=== PATIENT | female | born 1925 | race Caucasian/White ===

== ENCOUNTER → 2016-08-15 | Outpatient (CLI) | payer OTHER ==
[~2016-08-15] MED LIST: ACET325T96 PO; ASPEC81 PO; BISA10SU7 RE; CLC100 PO; FRRS300 PO; GLC/500 PO; GLIP-171 PO; METO50TA17 PO; MOML PO; MULTCAP36 PO; PARO10TA PO; RXC5 PO; SIMV10TA5 PO; ZNT/150 PO
[2016-08-15 10:13] LABS: ESTIMATED AVERAGE GLUCOSE 163 mg/dl; HA1C FLAG Normal (Normal)
== END ==
LOC: C.LABCC 07:47
PROVIDERS: ATTEND Internal Medicine
DX: E11.9 Type 2 diabetes mellitus without complications (principal)

== ENCOUNTER → 2016-12-18 | Outpatient (CLI) | payer OTHER ==
[2016-12-18 11:34] LABS: ESTIMATED AVERAGE GLUCOSE 194 mg/dl; HA1C FLAG Normal (Normal)
== END ==
LOC: C.LABCC 09:58
PROVIDERS: ATTEND Internal Medicine
DX: E11.9 Type 2 diabetes mellitus without complications (principal)